=== PATIENT | female | born 1960 | race Two or more races ===

== ENCOUNTER 2020-10-22 05:25 | Day surgery (SDC) | payer OTHER ==
[~2020-10-22 05:25] MED LIST: COZAAR50 MG PO; FERROUS SUL PO; HYDROCHLOROTH12.5 MG PO; SYNTHROID50 MCG PO; VITAMIN D PO
[2020-10-22] MEDS ORDERED: NEURONTIN300 MG PO (08:50)
[2020-10-22] MEDS ORDERED: PERCOCET 5-3251 EACH PO (08:51)
[2020-10-22] MEDS ORDERED: KETO10TA2 PO (08:51)
[2020-10-22] MEDS ORDERED: DERMOPLAST PAIN78 GM TOP (08:52)
== END 2020-10-22 15:25 | disposition home or self-care (01) ==
LOC: CIR.AMB 05:25
PROVIDERS: ATTEND Surgery
DX: K64.8 Other hemorrhoids (principal); K64.1 Second degree hemorrhoids; Z20.822 Contact with and (suspected) exposure to COVID-19